=== PATIENT | male | born 1955 | race American Indian/Alaskan Native ===

== ENCOUNTER 2019-01-17 12:47 | Inpatient (IN) | payer OTHER ==
[2019-01-17] MEDS ORDERED: ZOFRAN IV ONE (13:04)
[2019-01-17] MEDS ORDERED: DILAUDID IV ONE ×3 (13:04→19:50)
[2019-01-17] MEDS ORDERED: NACL 0.9% 1000 ML 1,000 ML IV ONE (13:04)
--- NOTE | 2019-01-17 13:07 | Emergency Department Report ---
ED Abdominal Pain HPI - General Chief Complaint: Abdominal Pain Stated Complaint: SEVERE ABD PAIN Time Seen by Provider: 01/17/19 13:04 Source: patient Mode of arrival: Ambulatory Limitations: No Limitations - History of Present Illness Initial Comments: Patient is a 63-year-old male that presents emergency room with complaints of abdominal pain. Patient states his abdominal pain started at 4 AM and is worsening. Patient states his pain is 10 out of 10. Patient states it's a stabbing and burning pain in the epigastric region radiating to his back. Patient denies fever and chills. Patient complaining of nausea and vomiting as well. Patient denies history of acid reflux. Patient denies use of alcohol or smoking. Patient states that the pain is better with rest and worse with walking, movement, palpation. MD Complaint: abdominal pain -: Sudden Location: epigastric Radiation: LLQ, RLQ Migration to: no migration Severity: severe Severity scale (0 -10): 10 Quality: stabbing Consistency: constant Improves With: rest Worsens With: eating, movement Associated Symptoms: nausea, vomiting. denies: diarrhea, fever, chills, constipation, dysuria, hematemesis, hematochezia, melena, hematuria, syncope - Related Data Home Medications Medication Instructions Recorded Confirmed Last Taken Losartan/Hydrochlorothiazide 1 each PO QDAY 01/17/19 01/17/19 2 Days Ago [Losartan-Hctz 50-12.5 mg Tab] ~01/15/19 1 Allergies Allergy/AdvReac Type Severity Reaction Status Date / Time No Known Allergies Allergy Unverified 01/17/19 12:50 ED Review of Systems ROS: Stated complaint: SEVERE ABD PAIN Other details as noted in HPI Constitutional: denies: chills, fever Eyes: denies: eye pain, eye discharge, vision change ENT: denies: ear pain, throat pain Respiratory: denies: cough, shortness of breath, wheezing Cardiovascular: denies: chest pain, palpitations Endocrine: no symptoms reported Gastrointestinal: as per HPI, abdominal pain, nausea, vomiting. denies: diarrhea Genitourinary: denies: urgency, dysuria Musculoskeletal: denies: back pain, joint swelling, arthralgia Skin: denies: rash, lesions Neurological: denies: headache, weakness, paresthesias Psychiatric: denies: anxiety, depression Hematological/Lymphatic: denies: easy bleeding, easy bruising ED Past Medical Hx - Past Medical History Previous Medical History?: Yes Hx Hypertension: Yes - Surgical History Past Surgical History?: No - Family History Family history: hypertension - Social History Smoking Status: Never Smoker Substance Use Type: None - Medications Home Medications: Home Medications Medication Instructions Recorded Confirmed Last Taken Type Losartan/Hydrochlorothiazide 1 each PO QDAY 01/17/19 01/17/19 2 Days Ago History [Losartan-Hctz 50-12.5 mg Tab] ~01/15/19 1 ED Physical Exam - General Limitations: No Limitations General appearance: alert, in no apparent distress - Head Head exam: Present: atraumatic, normocephalic - Eye Eye exam: Present: normal appearance - ENT ENT exam: Present: mucous membranes moist - Neck Neck exam: Present: normal inspection - Respiratory Respiratory exam: Present: normal lung sounds bilaterally. Absent: respiratory distress - Cardiovascular Cardiovascular Exam: Present: regular rate, normal rhythm. Absent: systolic murmur, diastolic murmur, rubs, gallop - GI/Abdominal GI/Abdominal exam: Present: soft, tenderness (epigastric tenderness noted), normal bowel sounds - Rectal Rectal exam: Present: deferred - Extremities Exam Extremities exam: Present: normal inspection - Back Exam Back exam: Present: normal inspection - Neurological Exam Neurological exam: Present: alert, oriented X3 - Psychiatric Psychiatric exam: Present: normal affect, normal mood - Skin Skin exam: Present: warm, dry, intact, normal color. Absent: rash ED Course Vital Signs 01/17/19 01/17/19 01/17/19 13:02 13:15 13:29 Temperature Pulse Rate 103 H Respiratory 24 81 H Rate Blood Pressure 152/107 Blood Pressure [Left] O2 Sat by Pulse 99 Oximetry 01/17/19 01/17/19 01/17/19 13:30 13:45 14:01 Temperature Pulse Rate 91 H 79 74 Respiratory 30 H 16 15 Rate Blood Pressure 119/89 119/89 152/107 Blood Pressure [Left] O2 Sat by Pulse Oximetry 01/17/19 01/17/19 01/17/19 14:15 14:31 16:42 Temperature Pulse Rate 73 84 Respiratory 15 11 L Rate Blood Pressure 154/103 169/100 169/100 Blood Pressure [Left] O2 Sat by Pulse 98 87 Oximetry 01/17/19 01/17/19 01/17/19 16:45 17:00 17:15 Temperature Pulse Rate 98 H 79 92 H Respiratory 33 H 16 17 Rate Blood Pressure 169/100 173/105 173/105 Blood Pressure [Left] O2 Sat by Pulse 96 92 94 Oximetry 01/17/19 01/17/19 01/17/19 17:30 17:45 18:00 Temperature Pulse Rate 75 81 80 Respiratory 20 14 17 Rate Blood Pressure 166/93 166/93 172/106 Blood Pressure [Left] O2 Sat by Pulse 95 90 Oximetry 01/17/19 01/17/19 01/17/19 18:15 18:30 18:45 Temperature Pulse Rate 82 80 74 Respiratory 14 17 12 Rate Blood Pressure 172/106 175/107 172/106 Blood Pressure [Left] O2 Sat by Pulse 94 93 Oximetry 01/17/19 01/17/19 01/17/19 19:00 19:15 19:28 Temperature 98 F Pulse Rate 64 76 Respiratory 18 14 22 Rate Blood Pressure 170/101 170/101 Blood Pressure 170/101 [Left] O2 Sat by Pulse 99 94 Oximetry - Reevaluation(s) Reevaluation #1: Patient having projectile vomiting and still complaining of severe abdominal pa in. Patient will be given medications. 01/17/19 13:15 Patient is still complaining of severe abdominal pain. Patient will be given Dilaudid. 01/17/19 13:40 Patient states his abdominal pain has improved. 01/17/19 15:47 A cystoscopy complaining of a 5 out of 10 abdominal pain. Patient has had 3 mg of Dilaudid. Discussed plan of care and admission of patient. Patient agrees with plan of care and admission. Patient was admitted to the hospitalist service. 01/17/19 16:30 - Consultations Consultation #1: Hospitalist consulted for admission. Hospitalist to admit patient. Hospitalist to assume care patient. 01/17/19 16:31 ED Medical Decision Making - Lab Data Result diagrams: 01/17/19 13:29 01/17/19 13:29 - EKG Data -: EKG Interpreted by Id EKG shows normal: sinus rhythm, axis, intervals, QRS complexes, ST-T waves Rate: tachycardia - Radiology Data Radiology results: report reviewed - Medical Decision Making Patient is a 63-year-old male Emergency room with severe abdominal pain. Patient's abdominal pain is in the epigastric region. Due to severity of the abdominal pain and the fact the abdominal pain was radiating to his back a CTA of the abdomen was done and was negative for acute findigs and dissection. . Patient required multiple doses of antiemetics and pain medication admitted to the hospitalist service for further evaluation treatment. Patient agrees with plan of care. Patient's pain is intractable. Patient continues to have nausea and vomiting. . - Differential Diagnosis nausea vomiting. Abdominal pain. Gastritis. Aortic dissection Critical Care Time: Yes Critical care attestation.: If time is entered above; I have spent that time in minutes in the direct care of this critically ill patient, excluding procedure time. Critical Care Time: 35 MINUTES ED Disposition Clinical Impression: Intractable abdominal pain, Lactic acid acidosis Intractable nausea and vomiting Qualifiers: Vomiting type: unspecified Qualified Code(s): R11.2 - Nausea with vomiting, unspecified Abdominal pain Qualifiers: Abdominal location: epigastric Qualified Code(s): R10.13 - Epigastric pain Gastritis Qualifiers: Gastritis type: unspecified gastritis Chronicity: acute Gastritis bleeding: without bleeding Qualified Code(s): K29.00 - Acute gastritis without bleeding Disposition: -09 OP ADMIT IP TO THIS HOSP Is pt being admited?: Yes Does the pt Need Aspirin: No Condition: Critical Time of Disposition: 16:33
[2019-01-17 13:44] LABS: Basophils # (Auto) 0.1 K/mm3 (0.0-0.1); Basophils % (Auto) 0.6 % (0.0-1.8); Eosinophils # (Auto) 0.1 K/mm3 (0.0-0.4); Eosinophils % (Auto) 0.5 % (0.0-4.3); Hematocrit 47.3 % (35.5-45.6); Hemoglobin 16.1 gm/dl (11.8-15.2); Lymphocytes # (Auto) 0.7 K/mm3 (1.2-5.4); Lymphocytes % (Auto) 7.1 % (13.4-35.0); Mean Corpuscular HGB Conc 34 % (32-34); Mean Corpuscular Volume 93 fl (84-94); Monocytes # (Auto) 0.3 K/mm3 (0.0-0.8); Monocytes % (Auto) 2.9 % (0.0-7.3); Platelet Count 227 K/mm3 (140-440); Red Blood Count 5.09 M/mm3 (3.65-5.03); Red Cell Distribution Width 13.1 % (13.2-15.2)
[2019-01-17 14:01] LABS: Alanine Aminotransferase 22 units/L (7-56); Albumin 4.5 g/dL (3.9-5); BUN/Creatinine Ratio 12; Blood Urea Nitrogen 14 mg/dL (9-20); Calcium 9.8 mg/dL (8.4-10.2); Hemolysis Index 11
[2019-01-17 14:04] LABS: Bilirubin,Direct < 0.2 mg/dL (0-0.2)
[2019-01-17] MEDS ORDERED: PHENERGAN PR ONE ×2 (14:09→16:08)
--- NOTE | 2019-01-17 15:54 | Cat Scan Report ---
PROCEDURE: CT ANGIO ABDOMEN PELVIS TECHNIQUE: Computerized axial tomographic angiography of the abdomen and pelvis was performed after the IV injection of iodinated nonionic contrast. The image data was postprocessed using 2-dimensional multiplanar reformatted (MPR) and 3-dimensional (MIP and/or volume rendered) techniques. CT DOSE LENGTH PRODUCT: 1232.9 mGycm HISTORY: abd pain COMPARISONS: None . FINDINGS: Abdominal aorta: Normal caliber. No aneurysm or dissection. Minimal calcified plaque above the origi n of the celiac axis . Celiac artery: Normal . Superior mesenteric artery: Normal . Left renal artery: Tiny calcified plaque at the origin of the left renal artery causing less than 50% stenosis . Right renal artery: Normal . Inferior mesenteric artery: Normal . Common iliacs: Normal . External iliacs: Normal . Internal iliacs: Minimal calcified plaque in the midportion of the left internal iliac artery, causi ng less than 50% stenosis . Hypervascular masses: None . Abdominal and pelvic viscera: Simple appearing 4.4 cm right renal cortical cyst . Simple appearing 1 .9 cm left renal cortical cyst. Hepatic steatosis with some areas of sparing around the gallbladder f molly Other: None . IMPRESSION: No acute abdominal aortic pathology. Very minimal scattered calcified plaques in the abdominal aorta, left renal artery, and left internal iliac artery, without significant stenosis . This document is electronically signed by Alexandria Vidales MD., Jan 17 2019 03:52:13 PM ET
--- NOTE | 2019-01-17 16:32 | History and Physical Report ---
History of Present Illness Chief complaint: My stomach hurts History of present illness: 63 YO Male with HTN presents to ED for evaluation. Pt states that he has experienced pain in his abdomen for the past 1 day. Pt states that his pain awoke him from sleep around 0400 hrs. Pt states that pain is 10/10, burning in nature, radiates to his lower back, associated with meals, worsened with movement, relieved with rest. Pt acknowledges dyspepsia and feeling bloated. Pt transported to [facility] via private vehicle. Pt seen and evaluated in ED and found to have Hypertensive Urgency, as well as Abdominal Pain. Pt admitted to medical floor. GI consulted in ED. Pt denies fever, chills, CP, Palpitations, skin rash, BRBPR, Ingestion of food/water from new/different sources, or known recent ill contacts. No prior admission for review. No medication listed for reconciliation at time of admission. Past History Past Medical History: hypertension Past Surgical History: No surgical history, Other (reviewed) Social history: single. denies: smoking, alcohol abuse, prescription drug abuse Family history: hypertension Medications and Allergies Allergies Allergy/AdvReac Type Severity Reaction Status Date / Time No Known Allergies Allergy Unverified 01/17/19 12:50 Review of Systems Constitutional: no weight loss, no weight gain, no chills Ears, nose, mouth and throat: no ear pain, no ear discharge, no decreased hearing, no nose pain, no nasal congestion Cardiovascular: no chest pain, no orthopnea, no palpitations, no edema, no syncope Respiratory: no cough, no cough with sputum, no excessive sputum, no hemoptysis Gastrointestinal: abdominal pain, dyspepsia/bloating, no nausea, no vomiting, no diarrhea, no hematochezia Genitourinary Male: no hematuria, no flank pain, no discharge, no urinary frequency, no urinary hesitancy, no genital pain Rectal: no pain, no incontinence Musculoskeletal: no neck stiffness, no shooting arm pain, no arm numbness/tingling, no low back pain, no shooting leg pain Integumentary: no rash, no pruritis, no redness, no sores, no wounds, no jaundice Neurological: no transient paralysis, no paralysis, no weakness, no tingling, no seizures Psychiatric: no anxiety, no memory loss, no change in sleep habits, no sleep disturbances, no insomnia, no hypersomnia, no change in libido Endocrine: no cold intolerance, no heat intolerance, no excessive thirst, no polydipsia, no nocturia Hematologic/Lymphatic: no easy bleeding, no lymphadenopathy, no lymphedema Allergic/Immunologic: no allergic rhinitis, no wheezing, no persistent infections Exam - Constitutional Vitals: Temp Pulse Resp BP Pulse Ox 84 11 L 169/100 87 01/17/19 14:31 01/17/19 14:31 01/17/19 14:31 01/17/19 14:31 General appearance: Present: mild distress - EENT Eyes: Present: PERRL ENT: hearing intact, clear oral mucosa - Neck Neck: Present: supple, normal ROM - Respiratory Respiratory effort: normal Respiratory: bilateral: CTA - Cardiovascular Heart Sounds: Present: S1 & S2. Absent: rub, click - Extremities Extremities: pulses symmetrical, No edema Peripheral Pulses: within normal limits - Abdominal General gastrointestinal: Present: soft, tender, non-distended, normal bowel sounds. Absent: hepatomegaly, splenomegaly Localized gastrointestinal: tender: epigastric periumbilical Male genitourinary: Present: normal - Integumentary Integumentary: Present: clear, warm, dry - Musculoskeletal Musculoskeletal: gait normal, strength equal bilaterally - Psychiatric Psychiatric: appropriate mood/affect, intact judgment & insight - Neurologic Neurologic: CNII-XII intact, moves all extremities Results - Labs CBC & Chem 7: 01/17/19 13:29 01/17/19 13:29 Labs: Abnormal lab results 01/17/19 01/17/19 01/17/19 Range/Units 13:29 13:29 13:29 RBC 5.09 H (3.65-5.03) M/mm3 Hgb 16.1 H (11.8-15.2) gm/dl Hct 47.3 H (35.5-45.6) % RDW 13.1 L (13.2-15.2) % Lymph % (Auto) 7.1 L (13.4-35.0) % Lymph # 0.7 L (1.2-5.4) K/mm3 Seg Neutrophils % 88.9 H (40.0-70.0) % Seg Neutrophils # 9.2 H (1.8-7.7) K/mm3 Glucose 153 H (75-100) mg/dL Lactic Acid 3.20 H* (0.7-2.0) mmol/L Assessment and Plan - Patient Problems (1) Hypertensive urgency, malignant Current Visit: Yes Status: Acute Plan to address problem: monitor bp q shift, Iv hydralazine prn, supportive care, continue medical management. (2) PUD (peptic ulcer disease) Current Visit: Yes Status: Suspected Plan to address problem: GI consulted, CT Abdomen Pelvis, ultrasound abdomen, serial abdominal exam, PPI therapy, (3) DVT prophylaxis Current Visit: Yes Status: Acute Plan to address problem: SCD to ble while in bed, prophylactic lovenox
[2019-01-17] MEDS ORDERED: NACL 0.9% 1000 ML 1,000 ML ONE ×2 (16:34)
[2019-01-17] MEDS ORDERED: PROVENTIL IH PRN (16:36)
[2019-01-17] MEDS: MORPHINE IV PRN ×2 (17:38→20:32)
[2019-01-17] MEDS: ZOFRAN IV PRN (17:39)
[2019-01-17] MEDS ORDERED: PERCOCET 5/325 ONE (19:28)
[2019-01-17] MEDS: PERCOCET 5/325 PO PRN (19:28)
[2019-01-17] MEDS ORDERED: DILAUDID ONE (19:55)
--- NOTE | 2019-01-17 20:21 | Event Note ---
Date: 01/17/19 Called my Darcy regarding patient blood pressure. Nurse informed that no mediation are listed for reconciliation at time of admission. Awaiting medication to be listed.
[2019-01-17] MEDS: SODIUM CHLORIDE FLUSH SYRINGE 10 ML IV PRN (20:33)
[2019-01-17] MEDS: APRESOLINE IV PRN (22:47)
[2019-01-17] MEDS: PEPCID PO SCH (22:47)
[2019-01-17] MEDS: SODIUM CHLORIDE FLUSH SYRINGE 10 ML IV SCH (22:48)
[2019-01-17] MEDS: LOVENOX SUB-Q SCH (22:55)
[2019-01-18 07:27] LABS: Basophils # (Auto) 0.1 K/mm3 (0.0-0.1); Basophils % (Auto) 0.6 % (0.0-1.8); Eosinophils # (Auto) 0.1 K/mm3 (0.0-0.4); Eosinophils % (Auto) 0.7 % (0.0-4.3); Hematocrit 42.7 % (35.5-45.6); Hemoglobin 14.7 gm/dl (11.8-15.2); Lymphocytes # (Auto) 0.9 K/mm3 (1.2-5.4); Lymphocytes % (Auto) 10.3 % (13.4-35.0); Mean Corpuscular HGB Conc 34 % (32-34); Mean Corpuscular Volume 93 fl (84-94); Monocytes # (Auto) 0.7 K/mm3 (0.0-0.8); Monocytes % (Auto) 7.2 % (0.0-7.3); Platelet Count 191 K/mm3 (140-440); Red Blood Count 4.62 M/mm3 (3.65-5.03); Red Cell Distribution Width 13.3 % (13.2-15.2)
[2019-01-18 07:42] LABS: Alanine Aminotransferase 18 units/L (7-56); Albumin 4.2 g/dL (3.9-5); BUN/Creatinine Ratio 9; Blood Urea Nitrogen 10 mg/dL (9-20); Hemolysis Index 4
[2019-01-18 08:25] LABS: Bilirubin,Urine NEG (Negative); Blood,Urine NEG (Negative); Color,Urine Yellow (Yellow); Mucus,Urine 2+ /HPF; Protein,Urine <15 mg/dL mg/dL (Negative); Urobilinogen,Urine < 2.0 mg/dL (<2.0)
[2019-01-18] MEDS: PEPCID PO SCH (10:00)
[2019-01-18] MEDS ORDERED: NON-FORMULARY (Losartan/Hydrochlorothiazide [Losartan-Hctz 50-12.5 Mg Tab] 1 EACH) PO SCH (10:00)
[2019-01-18] MEDS ORDERED: K-DUR PO ONE ×2 (10:30→15:50)
--- NOTE | 2019-01-18 10:33 | Ultrasound Report ---
ULTRASOUND ABDOMEN INDICATION: Pain. COMPARISON: Yesterday's CT. FINDINGS: Abdominal sonography somewhat limited due to patient's body habitus, though demonstrates diffuse increased hepatic echogenicity. Grossly preserved hepatic contours without biliary dilatation, to the extent assessed. Approximately 2 cm partly exophytic probable hemangioma at the right hepatic lobe tip inferiorly on CT not identified sonographically. Right hepatic lobe approximately 16 cm in midclavicular length. Small, approximately 1 cm echogenic gallstone noted dependently near its neck with minimal shadowing. Subtle gallbladder sludge also not entirely excluded versus technical artifact. No pericholecystic fluid or positive sonographic Cristina's sign. Gallbladder wall thickness is 2.4 mm. Common bile duct is 3.2 mm. Homogenous spleen, 13.6 cm in length. No ascites. Normal imaged pancreas, aorta and IVC. No hydronephrosis. Right kidney approximately 10.1 x 5.3 x 6.2 cm with cortical thickness of 1.3 cm. Large, approximately 4.3 cm right mid to lower renal partly exophytic cortical cyst seen on CT not identified sonographically. Left kidney estimated at 10.9 x 5.4 x 6.1 cm with cortical thickness of 1.4 cm. Approximately 1.6 cm left mid to lower lower renal cortical cyst again visualized. CONCLUSION: Fatty liver, cholelithiasis, slight splenomegaly and bilateral renal cysts in this patient with approximately 2 cm probable right hepatic hemangioma, as detailed above. Please correlate. Thank you for the opportunity to participate in this patient's care.
--- NOTE | 2019-01-18 11:12 | Gastroenterology Consultation ---
History of Present Illness - Reason for Consult Consult date: 01/18/19 abdominal pain Requesting physician: KLAUS BRAVO - History of Present Illness Patient is a 63 y/o male with PMH of HTN who presented to ED with c/o abdominal pain with associated N/V that began at 4am to which GI has been consulted. Upon admission, abd CTA was negative for acute pathology. This morning patient was resting in bed w/o acute distress. Reports feeling better with abd pain and N/V now improved. He states he has had 4 total episodes of these symptoms since last July with an acute onset of stabbing abdominal pain that is predominately in epigastric area (has some mild associated generalized abd pain as well) that radiates to his back, along with N/V with symptoms being constant for approximately ~6 hours and then resolves. Symptoms are not brought on by eating. Weight has been stable. Denies fever, CP, SOB, hematemesis, melena, dysphagia, diarrhea, constipation, or hematochezia. Started taking Ibuprofen daily for arthritis pain in May of last year. No hx of GERD, PUD, or prior EGD. No alcohol use or smoking. Past History Past Medical History: arthritis, hypertension Past Surgical History: No surgical history Social history: single. denies: smoking, alcohol abuse, prescription drug abuse Family history: hypertension Medications and Allergies Allergies Allergy/AdvReac Type Severity Reaction Status Date / Time No Known Allergies Allergy Unverified 01/17/19 12:50 Home Medications Medication Instructions Recorded Confirmed Last Taken Type Losartan/Hydrochlorothiazide 1 each PO QDAY 01/17/19 01/17/19 2 Days Ago History [Losartan-Hctz 50-12.5 mg Tab] ~01/15/19 1 Active Meds: Active Medications Acetaminophen (Tylenol) 650 mg PO Q4H PRN PRN Reason: Pain MILD(1-3)/Fever >100.5/HENAO Albuterol (Proventil) 2.5 mg IH Q4HRT PRN PRN Reason: Shortness Of Breath Enoxaparin Sodium (Lovenox) 40 mg SUB-Q QDAY@2200 [facility] Last Admin: 01/17/19 22:55 Dose: 40 mg Documented by: Famotidine (Pepcid) 20 mg PO BID [facility] Last Admin: 01/17/19 22:47 Dose: 20 mg Documented by: Hydralazine HCl (Apresoline) 10 mg IV Q4H PRN PRN Reason: Blood Pressure Last Admin: 01/17/19 22:47 Dose: 10 mg Documented by: Hydrochlorothiazide (Hctz) 12.5 mg PO QDAY [facility] Sodium Chloride (Nacl 0.9% 1000 Ml) 1,000 mls @ 50 mls/hr IV DIRECT ELSY Losartan Potassium (Cozaar) 50 mg PO QDAY [facility] Morphine Sulfate (Morphine) 2 mg IV Q4H PRN PRN Reason: Pain, Moderate (4-6) Last Admin: 01/17/19 20:32 Dose: 2 mg Documented by: Ondansetron HCl (Zofran) 4 mg IV Q8H PRN PRN Reason: Nausea And Vomiting Last Admin: 01/17/19 17:39 Dose: 4 mg Documented by: Oxycodone/Acetaminophen (Percocet 5/325) 1 tab PO Q6H PRN PRN Reason: Pain, Moderate (4-6) Last Admin: 01/17/19 19:28 Dose: 1 tab Documented by: Sodium Chloride (Sodium Chloride Flush Syringe 10 Ml) 10 ml IV BID ELSY Last Admin: 01/17/19 22:48 Dose: 10 ml Documented by: Sodium Chloride (Sodium Chloride Flush Syringe 10 Ml) 10 ml IV PRN PRN PRN Reason: LINE FLUSH Last Admin: 01/17/19 20:33 Dose: 10 ml Documented by: medications reviewed/updated as required Review of Systems - Review of Systems All systems: negative Gastrointestinal: abdominal pain, nausea, vomiting Exam - Constitutional Vital Signs: Temp Pulse Resp BP Pulse Ox 98.1 F 95 H 20 148/85 90 01/18/19 05:25 01/18/19 05:25 01/18/19 05:25 01/18/19 05:25 01/18/19 05:25 General appearance: no acute distress - Respiratory Respiratory: bilateral: CTA - Cardiovascular Rhythm: regular - Gastrointestinal General gastrointestinal: Present: soft, tender (slight TTP in epigastric area), non-distended, normal bowel sounds - Neurologic Neurological: alert and oriented x3 - Labs CBC & Chem 7: 01/18/19 06:09 01/18/19 06:09 Lab Results: Laboratory Results - last 24 hr 01/17/19 01/17/19 01/17/19 13:29 13:29 13:29 WBC 10.3 RBC 5.09 H Hgb 16.1 H Hct 47.3 H MCV 93 MCH 32 MCHC 34 RDW 13.1 L Plt Count 227 Lymph % (Auto) 7.1 L [place] % (Auto) 2.9 Eos % (Auto) 0.5 Baso % (Auto) 0.6 Lymph # 0.7 L [place] # 0.3 Eos # 0.1 Baso # 0.1 Seg Neutrophils % 88.9 H Seg Neutrophils # 9.2 H Sodium 143 Potassium 3.7 Chloride 102.7 Carbon Dioxide 24 Anion Gap 20 BUN 14 Creatinine 1.2 Estimated GFR > 60 BUN/Creatinine Ratio 12 Glucose 153 H Lactic Acid 3.20 H* Calcium 9.8 Total Bilirubin 0.60 Direct Bilirubin < 0.2 Indirect Bilirubin 0.4 AST 18 ALT 22 Alkaline Phosphatase 121 Total Protein 7.3 Albumin 4.5 Albumin/Globulin Ratio 1.6 Lipase 57 Urine Color Urine Turbidity Urine pH Ur Specific [place] Urine Protein Urine Glucose (UA) Urine Ketones Urine Blood Urine Nitrite Urine Bilirubin Urine Urobilinogen Ur Leukocyte Esterase Urine WBC (Auto) Urine RBC (Auto) U Epithel Cells (Auto) Urine Mucus 01/17/19 01/18/19 01/18/19 15:49 06:09 06:09 WBC 9.1 RBC 4.62 Hgb 14.7 Hct 42.7 MCV 93 MCH 32 MCHC 34 RDW 13.3 Plt Count 191 Lymph % (Auto) 10.3 L [place] % (Auto) 7.2 Eos % (Auto) 0.7 Baso % (Auto) 0.6 Lymph # 0.9 L [place] # 0.7 Eos # 0.1 Baso # 0.1 Seg Neutrophils % 81.2 H Seg Neutrophils # 7.4 Sodium 145 Potassium 3.5 L Chloride 103.6 Carbon Dioxide 29 Anion Gap 16 BUN 10 Creatinine 1.1 Estimated GFR > 60 BUN/Creatinine Ratio 9 Glucose 105 H Lactic Acid 1.60 Calcium 9.0 Total Bilirubin 0.90 Direct Bilirubin Indirect Bilirubin AST 18 ALT 18 Alkaline Phosphatase 104 Total Protein 7.1 Albumin 4.2 Albumin/Globulin Ratio 1.4 Lipase Urine Color Urine Turbidity Urine pH Ur Specific [place] Urine Protein Urine Glucose (UA) Urine Ketones Urine Blood Urine Nitrite Urine Bilirubin Urine Urobilinogen Ur Leukocyte Esterase Urine WBC (Auto) Urine RBC (Auto) U Epithel Cells (Auto) Urine Mucus 01/18/19 07:30 WBC RBC Hgb Hct MCV MCH MCHC RDW Plt Count Lymph % (Auto) [place] % (Auto) Eos % (Auto) Baso % (Auto) Lymph # [place] # Eos # Baso # Seg Neutrophils % Seg Neutrophils # Sodium Potassium Chloride Carbon Dioxide Anion Gap BUN Creatinine Estimated GFR BUN/Creatinine Ratio Glucose Lactic Acid Calcium Total Bilirubin Direct Bilirubin Indirect Bilirubin AST ALT Alkaline Phosphatase Total Protein Albumin Albumin/Globulin Ratio Lipase Urine Color Yellow Urine Turbidity Clear Urine pH 5.0 Ur Specific [place] 1.042 H Urine Protein <15 mg/dl Urine Glucose (UA) Neg Urine Ketones Neg Urine Blood Neg Urine Nitrite Neg Urine Bilirubin Neg Urine Urobilinogen < 2.0 Ur Leukocyte Esterase Neg Urine WBC (Auto) 2.0 Urine RBC (Auto) 3.0 U Epithel Cells (Auto) < 1.0 Urine Mucus 2+ Assessment and Plan 1.abdominal pain (predominately in epigastric area) 2.N/V -afebrile -WBC 9.1 -H/H WNL (14.7/42.7) -LFTs and lipase WNL -patient reports acute onset of stabbing abd pain that radiates to his back with associated N/V with symptoms lasting in duration of approximately 6 hrs then resolves with a total of 4 episodes since last July. Current episode began at 4 am this morning with symptoms now improved. No signs of bleeding or LGI symptoms. -abd CTA negative for acute findings (very minimal scattered calcified plaques) -abd U/S showed fatty liver, cholelithiasis, renal cysts, and hepatic hemangioma -etiology unclear- possible ulcer vs GB disease vs other -will schedule for EGD today for further evaluation (r/o GI pathology) -Keep NPO for now -continue PPI and supportive care -if EGD negative, consider HIDA scan -will follow
[2019-01-18] MEDS ORDERED: NACL 0.9% 1000 ML 1,000 ML IV SCH (12:00)
[2019-01-18] MEDS ORDERED: PROTONIX PO SCH (12:00)
[2019-01-18] MEDS ORDERED: DIPRIVAN 10 MG/ML IV ONE ×2 (13:30→13:31)
--- NOTE | 2019-01-18 14:19 | Post Operative Note ---
Pre-op diagnosis: Epigastric Pain Post-op diagnosis: other (Gastritis, HH, Small polyp) Findings: 1. Normal duodenum 2. Moderate erythema c/w gastritis (cold bx of antrum) 3. 2mm polyp in fundus, cold snare 4. Small hiatal hernia 5. Normal esophagus Procedure: EGD with cold biopsy and cold snare polypectomy Anesthesia: MAC Surgeon: ROXANA THAKUR Estimated blood loss: minimal Pathology: list (1. Gastric antrum. 2. Fundus polyp.) Specimen disposition: to lab Condition: stable Disposition: floor (Rec: 1. Continue daily protonix. 2. If abdominal pain recurs, would recommend cholecystectomy. 3. No signs of acute cholecystitis at present; OK to d/c home if tolerates diet; otherwise will need surgery consult.)
--- NOTE | 2019-01-18 15:03 | Operative Report ---
PROCEDURE PERFORMED: Esophagogastroduodenoscopy with cold biopsy as well as cold snare polypectomy. PREOPERATIVE DIAGNOSIS: Epigastric pain. POSTOPERATIVE DIAGNOSES: Gastritis, hiatal hernia, small polyp in the fundus of the stomach. ENDOSCOPIST: Colby Hauser MD INSTRUMENT: Revel Body video endoscope. MEDICATIONS: MAC anesthesia by [facility]hesia [facility]. COMPLICATIONS: No apparent complications. ESTIMATED BLOOD LOSS: Minimal. SPECIMENS: 1. Gastric antrum. 2. Small polyp in the fundus of the stomach. IMPLANTS: None. ASSISTANTS: None. CONDITION AT COMPLETION: Stable. TECHNIQUE: The patient was informed of the risks and benefits of the procedure. He signed the informed consent to proceed. He was placed in the left lateral decubitus position. The above sedative medications were given. His vital signs remained stable throughout the procedure. The instrument was advanced from the mouth to the second portion of the duodenum under direct visualization. At that point, the bowel was insufflated and the endoscope was slowly withdrawn. FINDINGS: 1. Normal duodenum. 2. Moderate erythema in the antrum of the stomach consistent with chronic gastritis, status post cold biopsy. 3. A 2-mm polyp in the fundus of the stomach, status post cold snare polypectomy. 4. Small hiatal hernia. 5. Normal esophagus. RECOMMENDATIONS: 1. Continue daily Protonix. 2. If abdominal pain recurs with eating, I would recommend a cholecystectomy. 3. There are no signs of acute cholecystitis on the patient's ultrasound or by physical examination; it is okay to discharge the patient home if he tolerates his diet. 4. If the patient's pain is recurrent, I would recommend a surgery consult for cholecystectomy. JOB# [id number] ENOC/NTS
--- NOTE | 2019-01-18 15:38 | Progress Note ---
Assessment and Plan Assessment and plan: Mr. Zambrano (name is wrong in the EMR, name is backward, [place] is last name and not the first name) is a 63 yo man travelling through the [place] area from [facility] going to [place], [place] for work with a history of hypertension who presents to [facility] ED with severe excruciating epigastric abdominal pains. This is his 4 such episodes and he has been worked up in the past in [facility]. * CTA abd/pelvis IMPRESSION: No acute abdominal aortic pathology. Very minimal scattered calcified plaques in the abdominal aorta, left renal artery, and left internal iliac artery, without significant stenosis . * US abd complete CONCLUSION: Fatty liver, cholelithiasis, slight splenomegaly and bilateral renal cysts in this patient with approximately 2 cm probable right hepatic hemangioma, as detailed above. Please correlate. Thank you for the opportunity to participate in this patient's care. * EGD revealed gastritis, hiatal hernia, small polyp in the fundus of the stomach -Abdominal pains, workup still in progress -Malignant hypertension urgency: cardiac diet, antihypertensives -Gastritis: PPI -Cholelithiasis: get HIDA scan if HIDA scan with cck is normal then discharge, if not then GS consult History Interval history: Patient was seen and examined. Follow-up on current diagnosis of severe abd pains. No overnight events reported to me. Patient denies any chest pain, shortness breath, nausea/vomiting or severe headaches. Imaging, nursing note, chart, labs and old chart reviewed. Discussed with patient. Hospitalist Physical - Physical exam Narrative exam: Gen: WDWN, NAD, Awake, Alert, Orientated HEENT: NCAT, EOMI, PERRL, OP Clear Neck: supple, no adenopathy, no thyromegaly, no JVD CVS/Heart: RRR, normal S1S2, pulses present bilaterally Chest/Lungs: CTA B, Symmetrical chest expansion, good air entry bilaterally GI/Abdomen: soft, epigastric tenderness, good bowel sounds, no guarding or rebound /Bladder: no suprapubic tenderness, no CVA or paraspinal tenderness Extermity/Skin: no c/c/e, no obvious rash MSK: FROM x 4 Neuro: CN 2-12 grossly intact, no new focal deficits Psych: calm - Constitutional Vitals: Temp Pulse Resp BP Pulse Ox 98.1 F 77 15 122/68 94 01/18/19 14:19 01/18/19 14:49 01/18/19 14:49 01/18/19 14:49 01/18/19 14:49 General appearance: Absent: mild distress Results - Labs CBC & Chem 7: 01/18/19 06:09 01/18/19 06:09 Labs: Laboratory Last Values WBC 9.1 K/mm3 (4.5-11.0) 01/18/19 06:09 RBC 4.62 M/mm3 (3.65-5.03) 01/18/19 06:09 Hgb 14.7 gm/dl (11.8-15.2) 01/18/19 06:09 Hct 42.7 % (35.5-45.6) 01/18/19 06:09 MCV 93 fl (84-94) 01/18/19 06:09 MCH 32 pg (28-32) 01/18/19 06:09 MCHC 34 % (32-34) 01/18/19 06:09 RDW 13.3 % (13.2-15.2) 01/18/19 06:09 Plt Count 191 K/mm3 (140-440) 01/18/19 06:09 Lymph % (Auto) 10.3 % (13.4-35.0) L 01/18/19 06:09 [place] % (Auto) 7.2 % (0.0-7.3) 01/18/19 06:09 Eos % (Auto) 0.7 % (0.0-4.3) 01/18/19 06:09 Baso % (Auto) 0.6 % (0.0-1.8) 01/18/19 06:09 Lymph # 0.9 K/mm3 (1.2-5.4) L 01/18/19 06:09 [place] # 0.7 K/mm3 (0.0-0.8) 01/18/19 06:09 Eos # 0.1 K/mm3 (0.0-0.4) 01/18/19 06:09 Baso # 0.1 K/mm3 (0.0-0.1) 01/18/19 06:09 Seg Neutrophils % 81.2 % (40.0-70.0) H 01/18/19 06:09 Seg Neutrophils # 7.4 K/mm3 (1.8-7.7) 01/18/19 06:09 Sodium 145 mmol/L (137-145) 01/18/19 06:09 Potassium 3.5 mmol/L (3.6-5.0) L 01/18/19 06:09 Chloride 103.6 mmol/L (98-107) 01/18/19 06:09 Carbon Dioxide 29 mmol/L (22-30) 01/18/19 06:09 16 mmol/L 01/18/19 06:09 BUN 10 mg/dL (9-20) 01/18/19 06:09 1.1 mg/dL (0.8-1.5) 01/18/19 06:09 Estimated GFR > 60 ml/min 01/18/19 06:09 9 % 01/18/19 06:09 Glucose 105 mg/dL (75-100) H 01/18/19 06:09 Lactic Acid 1.60 mmol/L (0.7-2.0) 01/17/19 15:49 Calcium 9.0 mg/dL (8.4-10.2) 01/18/19 06:09 0.90 mg/dL (0.1-1.2) 01/18/19 06:09 < 0.2 mg/dL (0-0.2) 01/17/19 13:29 0.4 mg/dL 01/17/19 13:29 AST 18 units/L (5-40) 01/18/19 06:09 ALT 18 units/L (7-56) 01/18/19 06:09 104 units/L (35-129) 01/18/19 06:09 7.1 g/dL (6.3-8.2) 01/18/19 06:09 4.2 g/dL (3.9-5) 01/18/19 06:09 1.4 % 01/18/19 06:09 57 units/L (13-60) 01/17/19 13:29 Yellow (Yellow) 01/18/19 07:30 Clear (Clear) 01/18/19 07:30 5.0 (5.0-7.0) 01/18/19 07:30 Ur Specific [place] 1.042 (1.003-1.030) H 01/18/19 07:30 <15 mg/dl mg/dL (Negative) 01/18/19 07:30 Neg mg/dL (Negative) 01/18/19 07:30 Neg mg/dL (Negative) 01/18/19 07:30 Neg (Negative) 01/18/19 07:30 Neg (Negative) 01/18/19 07:30 Neg (Negative) 01/18/19 07:30 < 2.0 mg/dL (<2.0) 01/18/19 07:30 Ur Leukocyte Esterase Neg (Negative) 01/18/19 07:30 2.0 /HPF (0.0-6.0) 01/18/19 07:30 3.0 /HPF (0.0-6.0) 01/18/19 07:30 U Epithel Cells (Auto) < 1.0 /HPF (0-13.0) 01/18/19 07:30 2+ /HPF 01/18/19 07:30 Active Medications - Current Medications Current Medications: Generic Name Dose Route Start Last Admin Trade Name Freq PRN Reason Stop Dose Admin Acetaminophen 650 mg 01/17/19 16:36 Tylenol PO Q4H PRN Pain MILD(1-3)/Fever >100.5/HENAO Albuterol 2.5 mg 01/17/19 16:36 Proventil IH Q4HRT PRN Shortness Of Breath Enoxaparin Sodium 40 mg 01/17/19 22:00 01/17/19 22:55 Lovenox SUB-Q 40 mg QDAY@2200 ELSY Administration Hydralazine HCl 10 mg 01/17/19 21:05 01/17/19 22:47 Apresoline IV 10 mg Q4H PRN Administration Blood Pressure Hydrochlorothiazide 12.5 mg 01/18/19 11:30 Hctz PO QDAY ELSY Sodium Chloride 1,000 mls @ 50 mls/hr 01/18/19 12:00 01/18/19 13:41 Nacl 0.9% 1000 Ml IV 50 mls/hr DIRECT ELSY Administration Losartan Potassium 50 mg 01/18/19 11:30 Cozaar PO QDAY ELSY Morphine Sulfate 1 mg 01/18/19 14:20 Morphine IV Q6H PRN Pain, Moderate (4-6) Ondansetron HCl 4 mg 01/17/19 16:36 01/17/19 17:39 Zofran IV 4 mg Q8H PRN Administration Nausea And Vomiting Oxycodone/Acetaminophen 1 tab 01/17/19 16:36 01/17/19 19:28 Percocet 5/325 PO 1 tab Q6H PRN Administration Pain, Moderate (4-6) Pantoprazole Sodium 40 mg 01/19/19 10:00 Protonix PO DAILY ELSY Sodium Chloride 10 ml 01/17/19 22:00 01/17/19 22:48 Sodium Chloride Flush Syringe 10 Ml IV 10 ml BID ELSY Administration Sodium Chloride 10 ml 01/17/19 16:36 01/17/19 20:33 Sodium Chloride Flush Syringe 10 Ml IV 10 ml PRN PRN Administration LINE FLUSH
[2019-01-18] MEDS: COZAAR PO SCH (16:00)
[2019-01-18] MEDS: HCTZ PO SCH (16:00)
[2019-01-18] MEDS: SODIUM CHLORIDE FLUSH SYRINGE 10 ML IV SCH ×2 (16:01→23:04)
[2019-01-18] MEDS: PERCOCET 5/325 PO PRN (23:01)
[2019-01-18] MEDS: TYLENOL PO PRN (23:02)
[2019-01-18] MEDS: LOVENOX SUB-Q SCH (23:04)
[2019-01-18] MEDS: APRESOLINE IV PRN (23:05)
[2019-01-19] MEDS: MORPHINE IV PRN ×2 (01:17→13:47)
[2019-01-19] MEDS: ZOFRAN IV PRN (01:21)
[2019-01-19] MEDS: SODIUM CHLORIDE FLUSH SYRINGE 10 ML IV PRN (01:22)
[2019-01-19] MEDS: SODIUM CHLORIDE FLUSH SYRINGE 10 ML IV SCH ×2 (10:00→23:43)
--- NOTE | 2019-01-19 10:43 | Gastroenterology Progress Note ---
Assessment and Plan 1.abdominal pain (predominately in epigastric area) 2.N/V -afebrile -WBC, H/H, LFTs, and lipase WNL -abd CTA negative for acute findings (very minimal scattered calcified plaques) -abd U/S showed fatty liver, cholelithiasis, renal cysts, and hepatic hemangioma -s/p EGD yesterday that showed gastritis and small hiatal hernia -bx result pending -etiology-likely GB disease -HIDA scan pending for today -consider surgery consult based on above results or if pain recurs for cholecystectomy -continue PPI and supportive care Subjective Date of service: 01/19/19 Principal diagnosis: abdominal pain Interval history: No acute distress. Reports another episode of abd pain radiating to his back overnight. Objective - Constitutional Vitals: Temp Pulse Resp BP Pulse Ox 98.6 F 86 20 138/84 96 01/19/19 05:17 01/19/19 05:17 01/19/19 05:17 01/19/19 05:17 01/19/19 05:17 General appearance: no acute distress - Respiratory Respiratory: bilateral: CTA - Cardiovascular Rhythm: regular - Gastrointestinal General gastrointestinal: Present: soft, non-tender, non-distended, normal bowel sounds - Neurologic Neurological: alert and oriented x3 - Labs CBC & Chem 7: 01/18/19 06:09 01/18/19 06:09
--- NOTE | 2019-01-19 12:53 | Nuclear Medicine Report ---
HIDA INDICATION: Abdominal pain, cholelithiasis. COMPARISON: Recent ultrasound and CT imaging findings. FINDINGS: Dynamic right upper quadrant imaging performed in the anterior projection over 60 minutes following uneventful intravenous administration of 5 mCi of Technetium 99m Choletec. Prompt and homogenous hepatic radiotracer uptake with subsequent washout seen with bowel activity seen at 15 minutes. However, no gallbladder visualized on imaging carried out to 2 hours, then terminated due to hepatic washout. CONCLUSION: Gallbladder nonvisualization that may represent obstructed cystic duct or cholecystitis in an appropriate setting, amongst others. Please also correlate clinically. I phoned the above results to Dr. Lofton, 12:50 PM, 01/19/2019. Thank you for the opportunity to participate in this patient's care.
--- NOTE | 2019-01-19 12:57 | Progress Note ---
Assessment and Plan Assessment and plan: Mr. Zambrano (name is wrong in the EMR, name is backward, [place] is last name and not the first name) is a 63 yo man travelling through the [place] area from [facility] going to [place], [place] for work with a history of hypertension who presents to [facility] ED with severe excruciating epigastric abdominal pains. This is his 4 such episodes and he has been worked up in the past in [facility]. * CTA abd/pelvis IMPRESSION: No acute abdominal aortic pathology. Very minimal scattered calcified plaques in the abdominal aorta, left renal artery, and left internal iliac artery, without significant stenosis . * US abd complete CONCLUSION: Fatty liver, cholelithiasis, slight splenomegaly and bilateral renal cysts in this patient with approximately 2 cm probable right hepatic hemangioma, as detailed above. Please correlate. Thank you for the opportunity to participate in this patient's care. * EGD revealed gastritis, hiatal hernia, small polyp in the fundus of the stomach -Abdominal pains, workup still in progress, suspect Cholecystitis -Malignant hypertension urgency: cardiac diet, antihypertensives -Gastritis: PPI -Cholelithiasis: get HIDA scan HIDA scan===>gallbladder not filling after 2 hours per Radiologist, I notified, GS, Dr. Perez, will start empiric iv zosyn for Acute cholecystitis History Interval history: Patient was seen and examined. Follow-up on current diagnosis of severe abd pains. No overnight events reported to me. Patient denies any chest pain, shortness breath, nausea/vomiting or severe headaches. Imaging, nursing note, chart, labs and old chart reviewed. Discussed with patient. Hospitalist Physical - Physical exam Narrative exam: Gen: WDWN, NAD, Awake, Alert, Orientated HEENT: NCAT, EOMI, PERRL, OP Clear Neck: supple, no adenopathy, no thyromegaly, no JVD CVS/Heart: RRR, normal S1S2, pulses present bilaterally Chest/Lungs: CTA B, Symmetrical chest expansion, good air entry bilaterally GI/Abdomen: soft, epigastric tenderness, good bowel sounds, no guarding or rebound /Bladder: no suprapubic tenderness, no CVA or paraspinal tenderness Extermity/Skin: no c/c/e, no obvious rash MSK: FROM x 4 Neuro: CN 2-12 grossly intact, no new focal deficits Psych: calm - Constitutional Vitals: Temp Pulse Resp BP Pulse Ox 98.6 F 86 20 138/84 96 01/19/19 05:17 01/19/19 05:17 01/19/19 05:17 01/19/19 05:17 01/19/19 05:17 General appearance: Absent: mild distress Results - Labs CBC & Chem 7: 01/18/19 06:09 01/18/19 06:09 Labs: Laboratory Last Values WBC 9.1 K/mm3 (4.5-11.0) 01/18/19 06:09 RBC 4.62 M/mm3 (3.65-5.03) 01/18/19 06:09 Hgb 14.7 gm/dl (11.8-15.2) 01/18/19 06:09 Hct 42.7 % (35.5-45.6) 01/18/19 06:09 MCV 93 fl (84-94) 01/18/19 06:09 MCH 32 pg (28-32) 01/18/19 06:09 MCHC 34 % (32-34) 01/18/19 06:09 RDW 13.3 % (13.2-15.2) 01/18/19 06:09 Plt Count 191 K/mm3 (140-440) 01/18/19 06:09 Lymph % (Auto) 10.3 % (13.4-35.0) L 01/18/19 06:09 [place] % (Auto) 7.2 % (0.0-7.3) 01/18/19 06:09 Eos % (Auto) 0.7 % (0.0-4.3) 01/18/19 06:09 Baso % (Auto) 0.6 % (0.0-1.8) 01/18/19 06:09 Lymph # 0.9 K/mm3 (1.2-5.4) L 01/18/19 06:09 [place] # 0.7 K/mm3 (0.0-0.8) 01/18/19 06:09 Eos # 0.1 K/mm3 (0.0-0.4) 01/18/19 06:09 Baso # 0.1 K/mm3 (0.0-0.1) 01/18/19 06:09 Seg Neutrophils % 81.2 % (40.0-70.0) H 01/18/19 06:09 Seg Neutrophils # 7.4 K/mm3 (1.8-7.7) 01/18/19 06:09 Sodium 145 mmol/L (137-145) 01/18/19 06:09 Potassium 3.5 mmol/L (3.6-5.0) L 01/18/19 06:09 Chloride 103.6 mmol/L (98-107) 01/18/19 06:09 Carbon Dioxide 29 mmol/L (22-30) 01/18/19 06:09 16 mmol/L 01/18/19 06:09 BUN 10 mg/dL (9-20) 01/18/19 06:09 1.1 mg/dL (0.8-1.5) 01/18/19 06:09 Estimated GFR > 60 ml/min 01/18/19 06:09 9 % 01/18/19 06:09 Glucose 105 mg/dL (75-100) H 01/18/19 06:09 Lactic Acid 1.60 mmol/L (0.7-2.0) 01/17/19 15:49 Calcium 9.0 mg/dL (8.4-10.2) 01/18/19 06:09 0.90 mg/dL (0.1-1.2) 01/18/19 06:09 < 0.2 mg/dL (0-0.2) 01/17/19 13:29 0.4 mg/dL 01/17/19 13:29 AST 18 units/L (5-40) 01/18/19 06:09 ALT 18 units/L (7-56) 01/18/19 06:09 104 units/L (35-129) 01/18/19 06:09 7.1 g/dL (6.3-8.2) 01/18/19 06:09 4.2 g/dL (3.9-5) 01/18/19 06:09 1.4 % 01/18/19 06:09 57 units/L (13-60) 01/17/19 13:29 Yellow (Yellow) 01/18/19 07:30 Clear (Clear) 01/18/19 07:30 5.0 (5.0-7.0) 01/18/19 07:30 Ur Specific [place] 1.042 (1.003-1.030) H 01/18/19 07:30 <15 mg/dl mg/dL (Negative) 01/18/19 07:30 Neg mg/dL (Negative) 01/18/19 07:30 Neg mg/dL (Negative) 01/18/19 07:30 Neg (Negative) 01/18/19 07:30 Neg (Negative) 01/18/19 07:30 Neg (Negative) 01/18/19 07:30 < 2.0 mg/dL (<2.0) 01/18/19 07:30 Ur Leukocyte Esterase Neg (Negative) 01/18/19 07:30 2.0 /HPF (0.0-6.0) 01/18/19 07:30 3.0 /HPF (0.0-6.0) 01/18/19 07:30 U Epithel Cells (Auto) < 1.0 /HPF (0-13.0) 01/18/19 07:30 2+ /HPF 01/18/19 07:30 Active Medications - Current Medications Current Medications: Generic Name Dose Route Start Last Admin Trade Name Freq PRN Reason Stop Dose Admin Acetaminophen 650 mg 01/17/19 16:36 01/18/19 23:02 Tylenol PO 650 mg Q4H PRN Administration Pain MILD(1-3)/Fever >100.5/HENAO Albuterol 2.5 mg 01/17/19 16:36 Proventil IH Q4HRT PRN Shortness Of Breath Enoxaparin Sodium 40 mg 01/17/19 22:00 01/18/19 23:04 Lovenox SUB-Q 40 mg QDAY@2200 ELSY Administration Hydralazine HCl 10 mg 01/17/19 21:05 01/18/19 23:05 Apresoline IV 10 mg Q4H PRN Administration Blood Pressure Hydrochlorothiazide 12.5 mg 01/18/19 11:30 01/18/19 16:00 Hctz PO 12.5 mg QDAY ELSY Administration Sodium Chloride 1,000 mls @ 50 mls/hr 01/18/19 12:00 01/18/19 13:41 Nacl 0.9% 1000 Ml IV 50 mls/hr DIRECT ELSY Administration Losartan Potassium 50 mg 01/18/19 11:30 01/18/19 16:00 Cozaar PO 50 mg QDAY ELSY Administration Morphine Sulfate 1 mg 01/18/19 14:20 01/19/19 01:17 Morphine IV 1 mg Q6H PRN Administration Pain, Moderate (4-6) Ondansetron HCl 4 mg 01/17/19 16:36 01/19/19 01:21 Zofran IV 4 mg Q8H PRN Administration Nausea And Vomiting Oxycodone/Acetaminophen 1 tab 01/17/19 16:36 01/18/19 23:01 Percocet 5/325 PO 1 tab Q6H PRN Administration Pain, Moderate (4-6) Pantoprazole Sodium 40 mg 01/19/19 10:00 Protonix PO DAILY ELSY Sodium Chloride 10 ml 01/17/19 22:00 01/18/19 23:04 Sodium Chloride Flush Syringe 10 Ml IV 10 ml BID ELSY Administration Sodium Chloride 10 ml 01/17/19 16:36 01/19/19 01:22 Sodium Chloride Flush Syringe 10 Ml IV 10 ml PRN PRN Administration LINE FLUSH
[2019-01-19] MEDS: COZAAR PO SCH (13:53)
[2019-01-19] MEDS: TYLENOL PO PRN (13:54)
[2019-01-19] MEDS: HCTZ PO SCH (13:54)
[2019-01-19] MEDS: PROTONIX PO SCH (13:54)
[2019-01-19] MEDS ORDERED: ZOSYN/NS 4.5GM/100ML 4.5 GM/100 ML VIAL IV SCH (14:30)
--- NOTE | 2019-01-19 17:16 | Consultation ---
History of Present Illness Consult date: 01/19/19 Reason for consult: abdominal pain Requesting physician: KAVEH MCCLELLAN Chief complaint: abdominal pain - History of present illness History of present illness: 63yo M presents to the hospital with acute onset of upper abdominal pain and back pain. This is the fourth episode since . He was in the process of being worked up for this pain at home in [place]. He is currently traveling. Workup revealed a nonvisualized gallbladder on HIDA scan. General surgery was consult for cholecystectomy consideration. Patient reports that his pain is a little bit better now. He would like to have the surgery done now as opposed to waiting until he gets home. Past History Past Medical History: arthritis, hypertension Past Surgical History: No surgical history Social history: single. denies: smoking, alcohol abuse, prescription drug abuse Family history: hypertension Medications and Allergies Allergies Allergy/AdvReac Type Severity Reaction Status Date / Time No Known Allergies Allergy Unverified 01/17/19 12:50 Home Medications Medication Instructions Recorded Confirmed Last Taken Type Losartan/Hydrochlorothiazide 1 each PO QDAY 01/17/19 01/17/19 2 Days Ago History [Losartan-Hctz 50-12.5 mg Tab] ~01/15/19 1 Active Meds: Active Medications Acetaminophen (Tylenol) 650 mg PO Q4H PRN PRN Reason: Pain MILD(1-3)/Fever >100.5/HENAO Last Admin: 01/19/19 13:54 Dose: 650 mg Documented by: Albuterol (Proventil) 2.5 mg IH Q4HRT PRN PRN Reason: Shortness Of Breath Enoxaparin Sodium (Lovenox) 40 mg SUB-Q QDAY@2200 [facility] Last Admin: 01/18/19 23:04 Dose: 40 mg Documented by: Hydralazine HCl (Apresoline) 10 mg IV Q4H PRN PRN Reason: Blood Pressure Last Admin: 01/18/19 23:05 Dose: 10 mg Documented by: Hydrochlorothiazide (Hctz) 12.5 mg PO QDAY [facility] Last Admin: 01/19/19 13:54 Dose: 12.5 mg Documented by: Sodium Chloride (Nacl 0.9% 1000 Ml) 1,000 mls @ 50 mls/hr IV DIRECT [facility] Last Admin: 01/18/19 13:41 Dose: 50 mls/hr Documented by: Losartan Potassium (Cozaar) 50 mg PO QDAY [facility] Last Admin: 01/19/19 13:53 Dose: 50 mg Documented by: Morphine Sulfate (Morphine) 1 mg IV Q6H PRN PRN Reason: Pain, Moderate (4-6) Last Admin: 01/19/19 13:47 Dose: 1 mg Documented by: Ondansetron HCl (Zofran) 4 mg IV Q8H PRN PRN Reason: Nausea And Vomiting Last Admin: 01/19/19 01:21 Dose: 4 mg Documented by: Oxycodone/Acetaminophen (Percocet 5/325) 1 tab PO Q6H PRN PRN Reason: Pain, Moderate (4-6) Last Admin: 01/18/19 23:01 Dose: 1 tab Documented by: Pantoprazole Sodium (Protonix) 40 mg PO DAILY [facility] Last Admin: 01/19/19 13:54 Dose: 40 mg Documented by: Sodium Chloride (Sodium Chloride Flush Syringe 10 Ml) 10 ml IV BID [facility] Last Admin: 01/18/19 23:04 Dose: 10 ml Documented by: Sodium Chloride (Sodium Chloride Flush Syringe 10 Ml) 10 ml IV PRN PRN PRN Reason: LINE FLUSH Last Admin: 01/19/19 01:22 Dose: 10 ml Documented by: Review of Systems - Constitutional no fever, no chills, no chronic pain - Cardiovascular no chest pain, no shortness of breath - Respiratory no cough - Gastrointestinal abdominal pain, nausea, no hematemesis, no coffee ground emesis, no BRBPR, no melena, no hematochezia - Muskuloskeletal low back pain - Hematologic/Lymphatic no easy bruising, no easy bleeding Exam Vital Signs Pulse Ox 99 01/17/19 13:02 - General physical appearance Positive: no distress, no pain - Eyes Positive: normal occular movement. Negative: icteric - Respiratory Positive: normal expansion, normal respiratory effort, clear to auscultation - Cardiovascular Rhythm: regular - Abdomen Abdomen: Present: soft, tender (very minimal in RUQ), bowel sounds hypoactive. Absent: distended, guarding, rigid, surgical scars - Integumentary no rash, no growths, no abnormal pigmentation - Neurologic Neurologic: alert and oriented to time, place and person, motor strength and sensation are grossly intact - Psychiatric Psychiatric: appropriate mood/affect, intact judgment & insight Results - Labs 01/18/19 06:09 01/18/19 06:09 - Imaging CT scan - abdomen: report reviewed, image reviewed CT scan - pelvis: report reviewed, image reviewed US - abdomen: report reviewed Additional studies: Report of HIDA reviewed Assessment and Plan - Patient Problems (1) Abdominal pain Current Visit: Yes Status: Acute Qualifiers: Abdominal location: upper abdomen, unspecified Qualified Code(s): R10.10 - Upper abdominal pain, unspecified Plan to address problem: Pt stable. It appears as though based on his history and recent workup, his pain is most likely related to an obstructed gallbladder. Patient assessed to be need for surgery. Discussed options of having it done here versus going home. Patient would like to have it done here to avoid the risk of another attack while he is driving home. Procedure, risks, benefits were discussed. All questions were answered. Consent was obtained for robotic-assisted cholecystectomy. Plan for surgery tomorrow. Please call with questions. Time = 45 minutes
[2019-01-19] MEDS: PERCOCET 5/325 PO PRN (23:32)
[2019-01-19] MEDS: LOVENOX SUB-Q SCH (23:33)
[2019-01-20] MEDS ORDERED: ceFAZolin 2 GM in NACL 0.9% 100 ML IV ONE (06:00)
[2019-01-20] MEDS ORDERED: DIPRIVAN 10 MG/ML IV ONE (08:45)
[2019-01-20] MEDS ORDERED: SUBLIMAZE ONE (08:45)
[2019-01-20] MEDS ORDERED: MARCAINE 0.5% INFILTRATI ONE (08:52)
[2019-01-20] MEDS ORDERED: XYLOCAINE 1% 20 mL ONE (08:52)
[2019-01-20] MEDS ORDERED: PROAIR IH ONE (08:54)
[2019-01-20] MEDS ORDERED: VERSED ONE (09:08)
[2019-01-20] MEDS ORDERED: DILAUDID IV PRN (09:09)
[2019-01-20] MEDS ORDERED: ZOFRAN IV PRN (09:09)
--- NOTE | 2019-01-20 09:09 | Anesthesia Consultation ---
Anesthesia Consult and Med Hx - Airway Anesthetic Teeth Evaluation: Dentures ROM Head & Neck: Adequate Mental/Hyoid Distance: Adequate Mallampati Class: Class II Intubation Access Assessment: Good - Pulmonary Exam CTA: Yes - Cardiac Exam Cardiac Exam: RRR - Pre-Operative Health Status ASA Pre-Surgery Classification: ASA2 Proposed Anesthetic Plan: General - Pulmonary Hx Smoking: Yes - Cardiovascular System Hx Hypertension: Yes - Central Nervous System Hx Psychiatric Problems: No - Other Systems Hx Cancer: No
--- NOTE | 2019-01-20 09:09 | Anesthesia Day of Surgery ---
Anesthesia Day of Surgery - Day of Surgery Patient Examined: Yes Patient H&P Reviewed: Yes Patient is NPO: Yes
[2019-01-20] MEDS ORDERED: DILAUDID ONE (10:37)
[2019-01-20] MEDS ORDERED: BLOXIVERZ ONE (11:21)
[2019-01-20] MEDS ORDERED: TORADOL ONE (11:21)
[2019-01-20] MEDS ORDERED: ROBINUL ONE (11:21)
--- NOTE | 2019-01-20 11:34 | Post Operative Note ---
Date of procedure: 01/20/19 (Dictation: [id number]) Pre-op diagnosis: cholecystitis Post-op diagnosis: other (acute cholecystitis) Findings: enlarged, thickened inflamed GB with adhesions. Procedure: robotic cholecystectomy IVF - 1L EBL 20cc Anesthesia: LEIA Surgeon: TALAT AMBROSE Estimated blood loss: minimal (20cc) Pathology: list (gallbladder) Specimen disposition: to lab Condition: stable Disposition: PACU
--- NOTE | 2019-01-20 12:43 | Post Anesthesia Evaluation ---
- Post Anesthesia Evaluation Patient Participated: Yes Airway Patent: Yes Stable Respiratory Function: Yes Nausea/Vomiting: No Temp > 96.8F: Yes Pain Manageable: Yes Adequeate Hydration: Yes Anesthesia Complications: No Patient on Ventilator: No
--- NOTE | 2019-01-20 13:09 | Operative Report ---
PREOPERATIVE DIAGNOSIS: Cholecystitis. POSTOPERATIVE DIAGNOSIS: Acute cholecystitis. PROCEDURE: Robotic-assisted cholecystectomy. ATTENDING PHYSICIAN: Jaylyn Perez MD ANESTHESIA: General. ESTIMATED BLOOD LOSS: Approximately 20 mL. FLUIDS: 1 liter. FINDINGS: Distended, markedly thickened inflamed gallbladder with adhesions to the adjacent omentum. Dense adhesions were noted to the liver. SPECIMENS: Gallbladder. DRAINS: None. COMPLICATIONS: None. DISPOSITION: Stable, transferred to Recovery Room. INDICATIONS: This is a 63-year-old male, who presented with acute onset of epigastric pain and back pain. Workup was done. Eventually HIDA scan was done that showed non-filling of the gallbladder. The patient was assessed to have some abnormality with the gallbladder contributing to his pain. The patient was assessed to be in need for cholecystectomy. Procedure, risks, and benefits were explained to the patient. Risks included, but were not limited to infection, bleeding, pain, injury to surrounding structures, possible need for open surgery, possible need for further procedures in the future. The patient understood and consented. OPERATIVE NOTE: The patient was brought to the operating room and placed on the table in supine position. After adequate general anesthesia was established, the patient was positioned in the appropriate manner for the robotic docking. Sterile prep and drape was done. SCDs were in place. Antibiotics have been given. Time-out was called. I began by placing a Veress needle in the left upper quadrant. I was able to insufflate on the first attempt. This was replaced with the 5-mm port entering with Optiview technique, I was able to enter the peritoneal cavity safely. There was no injury to the underlying structures. Then, under direct vision, we placed a 12-mm port at the umbilicus and two 8-mm ports on the right side of the abdomen. A 5-mm port was then replaced with an 8-mm robotic port under direct vision. A gauze was inserted into the abdominal cavity and then the robot was docked. Instruments were placed and then I proceeded to go to the console. We immediately identified a very distended, thickened gallbladder. I was unable to grab it very well. Therefore, under direct visual guidance, aspiration needle was inserted. Gallbladder was drained of greenish fluid. I was then able to grab it and manipulate it easier. We gradually took down the adhesions all the way down to the neck of the gallbladder. There were dense adhesions in this area. I carefully dissected out the cystic duct, cystic artery, and the critical view had at least a 2-cm critical view and the instrument was able to pass behind it. We had to go very slowly in this area as there was a lot of oozing from the inflamed tissue and the tissue was very thick; however, we were able to dissect it out safely. I dabbed this area very thoroughly before any clipping. I was able to very clearly see the cystic duct go into the gallbladder. There were no other ductal structures associated with it. I saw the cystic artery very clearly and then the critical view. As a precaution, I clipped the cystic artery first, divided it, and then I examined the critical view again. I saw no other ductal structures. I was satisfied that we had dissected out a fair amount of the cystic duct and no other structures. Therefore, 2 clips were placed distally on the cystic duct, 1 proximally in relation to the gallbladder, and this was divided. We then proceeded to take the gallbladder off the bed. As previously mentioned, there were dense adhesions. Both the dissection around the triangle of Calot and the gallbladder bed took extra time due to the difficulties of the inflammation and adhesions; however, we carefully proceeded to get it off. We did have a couple of holes in the gallbladder due to retraction; however, we were able to get the entire gallbladder off. Once it was off, we left it on the side. We examined the bed. We had excellent hemostasis in the bed. We examined where the clips were. I saw no evidence of any active bile or blood drainage. At this point, we proceeded to undock the robot. I then went back to a laparoscopic approach. We thoroughly irrigated out and suctioned out the area. We looked at the clips very carefully and as previously mentioned, we saw no evidence of any leakage of bile or no active bleeding. Therefore, I was satisfied with this appearance. As a precaution, we laid Surgicel in the area of the triangle of Calot just to make sure there was no delayed oozing. EndoCatch bag was inserted. Specimen was removed from the 12-mm port site. Abdomen was desufflated. We did remove the Ray-Barbara. All counts were correct at the end. I then used an open technique to close the fascia at the umbilicus with an 0 Vicryl stitch, [id number]. Additional local was injected. We injected at the start of the case as well and then I closed the skin with 4-0 Monocryl subcuticular stitches. Skin was cleaned and dried. Dermabond was placed. The patient tolerated the procedure well. There were no complications. All counts were correct at the end of the case. JOB# [id number] [place]
[2019-01-20] MEDS: COZAAR PO SCH (13:49)
[2019-01-20] MEDS: HCTZ PO SCH (13:49)
[2019-01-20] MEDS: SODIUM CHLORIDE FLUSH SYRINGE 10 ML IV SCH ×2 (13:49→22:14)
[2019-01-20] MEDS: PROTONIX PO SCH (13:49)
--- NOTE | 2019-01-20 14:42 | Progress Note ---
Assessment and Plan Assessment and plan: Mr. Zambrano (name is wrong in the EMR, name is backward, Kenya is last name and not the first name) is a 63 yo man travelling through the [place] area from [facility] going to [place], [place] for work with a history of hypertension who presents to [facility] with severe excruciating epigastric abdominal pains. This is his 4 such episodes and he has been worked up in the past in [facility]. * CTA abd/pelvis IMPRESSION: No acute abdominal aortic pathology. Very minimal scattered calcified plaques in the abdominal aorta, left renal artery, and left internal iliac artery, without significant stenosis . * US abd complete CONCLUSION: Fatty liver, cholelithiasis, slight splenomegaly and bilateral renal cysts in this patient with approximately 2 cm probable right hepatic hemangioma, as detailed above. Please correlate. Thank you for the opportunity to participate in this patient's care. * EGD revealed gastritis, hiatal hernia, small polyp in the fundus of the stomach * HIDA scan===>gallbladder not filling after 2 hours -Abdominal pains, workup still in progress, suspect chronic Cholecystitis with gallstones nonobstructive s/p robotic lap khurram -Malignant hypertension urgency: cardiac diet, antihypertensives -Gastritis: PPI -Cholelithiasis: get HIDA scan d/c tomorrow if pains is controlled History Interval history: Patient was seen and examined. Follow-up on current diagnosis of severe abd pains. No overnight events reported to me. Patient denies any chest pain, shortness breath, nausea/vomiting or severe headaches. Imaging, nursing note, chart, labs and old chart reviewed. Discussed with patient. Hospitalist Physical - Physical exam Narrative exam: Gen: WDWN, NAD, Awake, Alert, Orientated HEENT: NCAT, EOMI, PERRL, OP Clear Neck: supple, no adenopathy, no thyromegaly, no JVD CVS/Heart: RRR, normal S1S2, pulses present bilaterally Chest/Lungs: CTA B, Symmetrical chest expansion, good air entry bilaterally GI/Abdomen: soft, epigastric tenderness, good bowel sounds, no guarding or rebound /Bladder: no suprapubic tenderness, no CVA or paraspinal tenderness Extermity/Skin: no c/c/e, no obvious rash MSK: FROM x 4 Neuro: CN 2-12 grossly intact, no new focal deficits Psych: calm - Constitutional Vitals: Temp Pulse Resp BP Pulse Ox 98.5 F 78 16 117/76 95 01/20/19 13:15 01/20/19 13:49 01/20/19 12:55 01/20/19 13:49 01/20/19 12:55 General appearance: Absent: mild distress Results - Labs CBC & Chem 7: 01/18/19 06:09 01/18/19 06:09 Labs: Laboratory Last Values WBC 9.1 K/mm3 (4.5-11.0) 01/18/19 06:09 RBC 4.62 M/mm3 (3.65-5.03) 01/18/19 06:09 Hgb 14.7 gm/dl (11.8-15.2) 01/18/19 06:09 Hct 42.7 % (35.5-45.6) 01/18/19 06:09 MCV 93 fl (84-94) 01/18/19 06:09 MCH 32 pg (28-32) 01/18/19 06:09 MCHC 34 % (32-34) 01/18/19 06:09 RDW 13.3 % (13.2-15.2) 01/18/19 06:09 Plt Count 191 K/mm3 (140-440) 01/18/19 06:09 Lymph % (Auto) 10.3 % (13.4-35.0) L 01/18/19 06:09 [place] % (Auto) 7.2 % (0.0-7.3) 01/18/19 06:09 Eos % (Auto) 0.7 % (0.0-4.3) 01/18/19 06:09 Baso % (Auto) 0.6 % (0.0-1.8) 01/18/19 06:09 Lymph # 0.9 K/mm3 (1.2-5.4) L 01/18/19 06:09 [place]berry # 0.7 K/mm3 (0.0-0.8) 01/18/19 06:09 Eos # 0.1 K/mm3 (0.0-0.4) 01/18/19 06:09 Baso # 0.1 K/mm3 (0.0-0.1) 01/18/19 06:09 Seg Neutrophils % 81.2 % (40.0-70.0) H 01/18/19 06:09 Seg Neutrophils # 7.4 K/mm3 (1.8-7.7) 01/18/19 06:09 Sodium 145 mmol/L (137-145) 01/18/19 06:09 Potassium 3.5 mmol/L (3.6-5.0) L 01/18/19 06:09 Chloride 103.6 mmol/L (98-107) 01/18/19 06:09 Carbon Dioxide 29 mmol/L (22-30) 01/18/19 06:09 16 mmol/L 01/18/19 06:09 BUN 10 mg/dL (9-20) 01/18/19 06:09 1.1 mg/dL (0.8-1.5) 01/18/19 06:09 Estimated GFR > 60 ml/min 01/18/19 06:09 9 % 01/18/19 06:09 Glucose 105 mg/dL (75-100) H 01/18/19 06:09 Lactic Acid 1.60 mmol/L (0.7-2.0) 01/17/19 15:49 Calcium 9.0 mg/dL (8.4-10.2) 01/18/19 06:09 0.90 mg/dL (0.1-1.2) 01/18/19 06:09 < 0.2 mg/dL (0-0.2) 01/17/19 13:29 0.4 mg/dL 01/17/19 13:29 AST 18 units/L (5-40) 01/18/19 06:09 ALT 18 units/L (7-56) 01/18/19 06:09 104 units/L (35-129) 01/18/19 06:09 7.1 g/dL (6.3-8.2) 01/18/19 06:09 4.2 g/dL (3.9-5) 01/18/19 06:09 1.4 % 01/18/19 06:09 57 units/L (13-60) 01/17/19 13:29 Yellow (Yellow) 01/18/19 07:30 Clear (Clear) 01/18/19 07:30 5.0 (5.0-7.0) 01/18/19 07:30 Ur Specific [place] 1.042 (1.003-1.030) H 01/18/19 07:30 <15 mg/dl mg/dL (Negative) 01/18/19 07:30 Neg mg/dL (Negative) 01/18/19 07:30 Neg mg/dL (Negative) 01/18/19 07:30 Neg (Negative) 01/18/19 07:30 Neg (Negative) 01/18/19 07:30 Neg (Negative) 01/18/19 07:30 < 2.0 mg/dL (<2.0) 01/18/19 07:30 Ur Leukocyte Esterase Neg (Negative) 01/18/19 07:30 2.0 /HPF (0.0-6.0) 01/18/19 07:30 3.0 /HPF (0.0-6.0) 01/18/19 07:30 U Epithel Cells (Auto) < 1.0 /HPF (0-13.0) 01/18/19 07:30 2+ /HPF 01/18/19 07:30 Active Medications - Current Medications Current Medications: Generic Name Dose Route Start Last Admin Trade Name Freq PRN Reason Stop Dose Admin Acetaminophen 650 mg 01/17/19 16:36 01/19/19 13:54 Tylenol PO 650 mg Q4H PRN Administration Pain MILD(1-3)/Fever >100.5/HENAO Albuterol 2.5 mg 01/17/19 16:36 Proventil IH Q4HRT PRN Shortness Of Breath Enoxaparin Sodium 40 mg 01/17/19 22:00 01/19/19 23:33 Lovenox SUB-Q 40 mg QDAY@2200 ELSY Administration Hydralazine HCl 10 mg 01/17/19 21:05 01/18/19 23:05 Apresoline IV 10 mg Q4H PRN Administration Blood Pressure Hydrochlorothiazide 12.5 mg 01/18/19 11:30 01/20/19 13:49 Hctz PO 12.5 mg QDAY ELSY Administration Hydromorphone HCl 0.5 mg 01/20/19 09:09 Dilaudid IV 01/20/19 16:00 Q10MIN PRN Pain , Severe (7-10) Sodium Chloride 1,000 mls @ 50 mls/hr 01/18/19 12:00 01/18/19 13:41 Nacl 0.9% 1000 Ml IV 50 mls/hr DIRECT ELSY Administration Losartan Potassium 50 mg 01/18/19 11:30 01/20/19 13:49 Cozaar PO 50 mg QDAY ELSY Administration Morphine Sulfate 1 mg 01/18/19 14:20 01/19/19 13:47 Morphine IV 1 mg Q6H PRN Administration Pain, Moderate (4-6) Ondansetron HCl 4 mg 01/17/19 16:36 01/19/19 01:21 Zofran IV 4 mg Q8H PRN Administration Nausea And Vomiting Ondansetron HCl 4 mg 01/20/19 09:09 Zofran IV 01/20/19 16:00 ONCE PRN Nausea And Vomiting Oxycodone/Acetaminophen 1 tab 01/17/19 16:36 01/19/19 23:32 Percocet 5/325 PO 1 tab Q6H PRN Administration Pain, Moderate (4-6) Pantoprazole Sodium 40 mg 01/19/19 10:00 01/20/19 13:49 Protonix PO 40 mg DAILY ELSY Administration Sodium Chloride 10 ml 01/17/19 22:00 01/20/19 13:49 Sodium Chloride Flush Syringe 10 Ml IV 10 ml BID ELSY Administration Sodium Chloride 10 ml 01/17/19 16:36 01/19/19 01:22 Sodium Chloride Flush Syringe 10 Ml IV 10 ml PRN PRN Administration LINE FLUSH
[2019-01-20] MEDS: PERCOCET 5/325 PO PRN (22:13)
[2019-01-20] MEDS: LOVENOX SUB-Q SCH (22:14)
[2019-01-21] MEDS: PERCOCET 5/325 PO PRN ×2 (04:29→11:34)
[2019-01-21 05:39] VITALS: BP 96/70
[2019-01-21] MEDS: MORPHINE IV PRN (07:56)
[2019-01-21] MEDS: PROTONIX PO SCH (09:50)
[2019-01-21] MEDS: HCTZ PO SCH (09:50)
[2019-01-21] MEDS: COZAAR PO SCH (09:50)
[2019-01-21] MEDS: SODIUM CHLORIDE FLUSH SYRINGE 10 ML IV SCH (09:51)
--- NOTE | 2019-01-21 10:00 | Progress Note ---
Assessment and Plan - Patient Problems (1) Cholecystitis with cholelithiasis Current Visit: Yes Status: Acute Qualifiers: Cholelithiasis location: gallbladder Cholecystitis acuity: acute and chronic Biliary obstruction: without biliary obstruction Qualified Code(s): K80.12 - Calculus of gallbladder with acute and chronic cholecystitis without obstruction Plan to address problem: Pt stable. s/p robotic cholecystectomy. POD#1. Patient looks good. Tolerated liquid diet. Patient okay for discharge from my standpoint. He should follow- up with his local physician in 2 weeks. Diet as tolerated. Encouraged to ambulate frequently on his drive home. He has been reminded that he should not be driving. Encouraged to stay well-hydrated. Patient was very appreciative of the care. Please call with questions. Subjective Date of service: 01/21/19 Patient Reports: Positive: no new complaints, tolerating liquids well, other (incisional pain). Negative: nausea, vomiting Objective Vital Signs - 12hr 01/20/19 01/20/19 01/21/19 22:13 23:13 04:29 Temperature Pulse Rate Respiratory 18 18 18 Rate Blood Pressure O2 Sat by Pulse Oximetry 01/21/19 01/21/19 05:20 05:29 Temperature 98.4 F Pulse Rate 71 Respiratory 24 18 Rate Blood Pressure 96/70 O2 Sat by Pulse 94 Oximetry - General physical appearance no distress, no pain - Respiratory normal expansion, normal respiratory effort - Abdomen soft, not distended, not guarding, not rigid, surgical scars (C/D/I) - Psychiatric oriented to time, oriented to person, oriented to place, speech is normal, memory intact - Labs 01/18/19 06:09 01/18/19 06:09
--- NOTE | 2019-01-21 10:43 | Discharge Summary ---
Providers - Providers Date of Admission: 01/17/19 16:36 Date of discharge: 01/21/19 Attending physician: KAVEH MCCLELLAN 01/17/19 19:17 Consult to Physician [CONS] Routine Comment: Consulting Provider: JESI HO Physician Instructions: Reason For Exam: Abdominal pain/PUD 01/19/19 12:52 Consult to Physician [CONS] Routine Comment: Consulting Provider: TALAT AMBROSE Physician Instructions: Reason For Exam: GB dysfunction, ?cholecystitis [facility] Condition: Stable Hospital course: Mr. Kenya Smith (name was wrong in the EMR, name is backward, Kenya is last name and not the first name, so I had it corrected in the EMR system) is a 63 yo man travelling through the [place] area from [place] going to [place], [place] for work with a history of hypertension who presents to [facility] with severe excruciating epigastric abdominal pains. This is his 4 such episodes and he has been worked up in the past in [place]. * CTA abd/pelvis IMPRESSION: No acute abdominal aortic pathology. Very minimal scattered calcified plaques in the abdominal aorta, left renal artery, and left internal iliac artery, without significant stenosis . * US abd complete CONCLUSION: Fatty liver, cholelithiasis, slight splenomegaly and bilateral renal cysts in this patient with approximately 2 cm probable right hepatic hemangioma, as detailed above. Please correlate. Thank you for the opportunity to participate in this patient's care. * EGD revealed gastritis, hiatal hernia, small polyp in the fundus of the stomach==>bx of polyp was benign, mild chronic gastritis * HIDA scan===>gallbladder not filling after 2 hours -Abdominal pains-->K80.12 - Calculus of gallbladder with acute and chronic cholecystitis without obstruction s/p robotic lap cholecystectomy on 01/20/2019 -Malignant hypertension urgency: cardiac diet, antihypertensives -Gastritis: PPI -Cholelithiasis: Disposition: DC- TO HOME OR SELFCARE Time spent for discharge: 36 minutes Core Measure Documentation - Palliative Care Palliative Care/ Comfort Measures: Not Applicable - Core Measures Any of the following diagnoses?: none - VTE Discharge Requirements Deep Vein Thrombosis/Pulmonary Embolism Present on Admission: No Has pt received <5 days of overlap therapy or INR<2.0: No Anticoagulant overlap therapy prescribed at discharge: No Contraindication No Overlap Therapy order at DC: Not Indicated Exam - Physical Exam Narrative exam: Gen: WDWN, NAD, Awake, Alert, Orientated x 3 HEENT: NCAT, EOMI, PERRL, OP Clear Neck: supple, no adenopathy, no thyromegaly, no JVD CVS/Heart: RRR, normal S1S2, pulses present bilaterally Chest/Lungs: CTA B, Symmetrical chest expansion, good air entry bilaterally GI/Abdomen: soft, NTND, incision sites clean and intact, good bowel sounds, no guarding or rebound /Bladder: no suprapubic tenderness, no CVA or paraspinal tenderness Extermity/Skin: no c/c/e, no obvious rash MSK: FROM x 4 Neuro: CN 2-12 grossly intact, no new focal deficits Psych: calm - Constitutional Vitals: Temp Pulse Resp BP Pulse Ox 98.4 F 71 18 96/70 94 01/21/19 05:20 01/21/19 05:20 01/21/19 05:29 01/21/19 05:20 01/21/19 05:20 Plan Activity: other (no strenous activity until cleared by PCP) Diet: low salt, advance as tolerated Follow up with: [facility] ANNALISA [Primary Care Provider] - 7 Days TALAT AMBROSE MD [Staff Physician] - 7 Days Prescriptions: oxyCODONE /ACETAMINOPHEN [Percocet 5/325 mg] 1 tab PO Q6H PRN #15 tablet PRN Reason: Pain , Severe (7-10) Pantoprazole [Protonix TAB] 40 mg PO DAILY #14 tablet
== END 2019-01-21 12:05 | disposition home or self-care (01) | DRG 418 ==
LOC: ED 12:47 → 3A 16:36
PROVIDERS: ADMIT Internal Medicine; ATTEND Internal Medicine
PROC: 0DB68ZX Excision of Stomach, Via Natural or Artificial Opening Endoscopic, Diagnostic (ICD-10-PCS; 2019-01-18)
PROC: 0DB78ZZ Excision of Stomach, Pylorus, Via Natural or Artificial Opening Endoscopic (ICD-10-PCS; 2019-01-18)
PROC: 0FN44ZZ Release Gallbladder, Percutaneous Endoscopic Approach (ICD-10-PCS; principal; 2019-01-20)
PROC: 0FT44ZZ Resection of Gallbladder, Percutaneous Endoscopic Approach (ICD-10-PCS; 2019-01-20)
PROC: 8E0W4CZ Robotic Assisted Procedure of Trunk Region, Percutaneous Endoscopic Approach (ICD-10-PCS; 2019-01-20)
DX: K80.12 Calculus of gallbladder with acute and chronic cholecystitis without obstruction (principal); E87.2 Acidosis; K29.00 Acute gastritis without bleeding; I16.0 Hypertensive urgency; K29.50 Unspecified chronic gastritis without bleeding; I10 Essential (primary) hypertension; K31.7 Polyp of stomach and duodenum; K44.9 Diaphragmatic hernia without obstruction or gangrene; K82.8 Other specified diseases of gallbladder; Z82.49 Family history of ischemic heart disease and other diseases of the circulatory system
CPT/HCPCS: 36415; 74174; 76700; 78226; 80048; 80053; 80076; 81001; 82140; 83690; 85025; 88304; 88305; 88342; 93005; 93010; 94760; 96374; 96375; 96376; 99291; G0378; A9537; J0360; J0690; J1170; J1650; J1885; J2250; J2270; J2405; J2543; J2704; J2710; J3010; J7030; Q9967